=== PATIENT | female | born 1980 | race Hispanic/Latino ===

== ENCOUNTER 2021-01-01 05:30 | Observation (INO) | payer MEDICAID ==
[2020-12-28 11:33] LABS: BASOPHILS % (AUTO) 0.7 % (0.0-5.0); EOSINOPHILS % (AUTO) 3.5 % (0.0-8.0); HEMATOCRIT 30.4 % (36-48); LYMPHOCYTES % (AUTO) 21.7 % (21.0-51.0); MEAN CORPUSCULAR HEMOGLOBIN 19.3 pg (27.0-33.0); MEAN CORPUSCULAR HGB CONC 27.3 g/dL (32.0-36.0); MEAN CORPUSCULAR VOLUME 70.9 fL (79-99); MONOCYTES % (AUTO) 5.3 % (3.0-13.0); NEUTROPHILS % (AUTO) 68.6 % (40.0-77.0); PLATELET COUNT (AUTO) 449 K/uL (130-400); RED BLOOD CELL COUNT(AUTO) 4.29 MIL/uL (4.00-5.50); RED CELL DISTRIBUTION WIDTH 23.2 % (11.0-15.5); WHITE BLOOD COUNT (AUTO) 8.7 K/uL (4.8-10.8)
[2020-12-28 13:31] VITALS: BP 140/79
[2021-01-01] VITALS (27 sets, daily range): BP systolic 70–139; BP diastolic 27–83
[~2021-01-01] VITALS: Ht 165.1 cm; Wt 99.2 kg
[~2021-01-01 05:30] MED LIST: IRON18TA PO; LACTATED RINGERS 1000ML 1,000 ML IV SCH
[2021-01-01] MEDS ORDERED: CEFAZOLIN SODIUM 1 GM VIAL IVP SCH (06:00)
[2021-01-01] MEDS ORDERED: DEXAMETHASONE SOD PHOSPHATE 10MG/ML 1ML VIAL ONE (06:38)
[2021-01-01] MEDS ORDERED: LIDOCAINE PF 100MG/5ML (2%) SYRINGE 5ML ONE (06:38)
[2021-01-01] MEDS ORDERED: SUCCINYLCHOLINE CHLORIDE 20 MG/ML 10 ML VIAL ONE (06:38)
[2021-01-01] MEDS ORDERED: NEOSTIGMINE 5MG/5ML SYR IV ONE (06:41)
[2021-01-01] MEDS ORDERED: MIDAZOLAM HCL 1 MG/ML 2ML VIAL ONE (06:41)
[2021-01-01] MEDS ORDERED: ONDANSETRON 4MG INJ ONE (06:41)
[2021-01-01] MEDS ORDERED: PROPOFOL 10 MG/ML 20ML VIAL IV ONE (06:41)
[2021-01-01] MEDS ORDERED: FENTANYL CITRATE PF 50 MCG/1 ML 2ML VIAL ONE ×2 (06:41→07:08)
[2021-01-01] MEDS ORDERED: GLYCOPYRROLATE 1 MG/5 ML SYRINGE ONE ×2 (06:41→08:33)
[2021-01-01] MEDS ORDERED: ROCURONIUM 10MG/1ML SYR 10 MG/ML ML ONE (06:41)
[2021-01-01] MEDS ORDERED: MEPERIDINE-PF 25 MG/ML SYG ONE ×3 (06:42→08:54)
[2021-01-01] MEDS ORDERED: PHENYLEPHRINE HCL 10 MG/ML 1ML VIAL IV ONE (07:12)
[2021-01-01] MEDS ORDERED: BISACODYL 10 MG SUPP.RECT RC PRN (10:15)
[2021-01-01] MEDS ORDERED: IBUPROFEN 600 MG TABLET PO PRN (10:15)
[2021-01-01] MEDS ORDERED: SIMETHICONE 80 MG TAB.CHEW PO PRN (10:15)
[2021-01-01] MEDS ORDERED: PROMETHAZINE HCL 25 MG/ML 1ML AMPULE IM PRN (10:15)
[2021-01-01] MEDS ORDERED: ONDANSETRON 4MG INJ IVP PRN (10:15)
[2021-01-01] MEDS ORDERED: MEPERIDINE-PF 75 MG/ML SYG IM PRN ×2 (10:15→12:45)
[2021-01-01] MEDS ORDERED: DOCUSATE SODIUM 100 MG CAP PO PRN (10:15)
[2021-01-01] MEDS ORDERED: MEPERIDINE-PF 25 MG/ML SYG IM PRN (10:30)
[2021-01-01] MEDS: DEXTROSE 5 %-0.45 % NACL 1,000 ML IV PRN ×2 (10:43→18:45)
[2021-01-01] MEDS: ACETAMINOPHEN WITH CODEINE 1 TAB TAB PO PRN ×2 (11:00→16:34)
[2021-01-01] MEDS: PROMETHAZINE HCL 25 MG/ML 1ML AMPULE IM PRN ×2 (12:23→18:45)
[2021-01-01] MEDS ORDERED: FLU VACC QS2020-21(6MOS UP)/PF 60 MCG/0.5 ML ML IM ONE (17:30)
[2021-01-02] MEDS: DEXTROSE 5 %-0.45 % NACL 1,000 ML IV PRN (02:59)
[2021-01-02 03:16] VITALS: BP 119/69
[2021-01-02 04:53] LABS: HEMATOCRIT 26.5 % (36-48); MEAN CORPUSCULAR HEMOGLOBIN 20.3 pg (27.0-33.0); MEAN CORPUSCULAR HGB CONC 27.9 g/dL (32.0-36.0); MEAN CORPUSCULAR VOLUME 72.8 fL (79-99); RED BLOOD CELL COUNT(AUTO) 3.64 MIL/uL (4.00-5.50); RED CELL DISTRIBUTION WIDTH 23.7 % (11.0-15.5); WHITE BLOOD COUNT (AUTO) 12.4 K/uL (4.8-10.8)
[2021-01-02 07:44] VITALS: BP 136/90
[2021-01-02] MEDS ORDERED: ACET1TAB25 PO (13:04)
== END 2021-01-02 14:15 | disposition home or self-care (01) ==
LOC: DAH 05:30 → WSH 05:31 → DAH 05:31 → WSH 09:50
PROVIDERS: ADMIT Obstetrics & Gynecology; ATTEND Obstetrics & Gynecology
DX: N92.1 Excessive and frequent menstruation with irregular cycle (principal); Z20.822 Contact with and (suspected) exposure to COVID-19; D25.9 Leiomyoma of uterus, unspecified; N81.5 Vaginal enterocele; D50.0 Iron deficiency anemia secondary to blood loss (chronic); E66.01 Morbid (severe) obesity due to excess calories; Z23 Encounter for immunization; Z68.36 Body mass index [BMI] 36.0-36.9, adult
CPT/HCPCS: 36415 ×2; 58292; 85025; 85027; 86850; 86900; 86901; 88305; 88307; 90471; 96360; 96361 ×2; 96372; A4213; A4215; A4216; A4221; A4222; A4223 ×2; A4351; A4510; A4600; A4606; A4663; A6260; C9803; G0378 ×20; J0330; J0690; J1100; J2001; J2175 ×5; J2250; J2370; J2405; J2550 ×2; J2704; J2710; J3010 ×2; J3490 ×2; J7042; J7120 ×2; Q2035; U0003

== ENCOUNTER → 2023-03-12 | Outpatient (CLI) | payer OTHER ==
[~2023-03-12] MED LIST changes: +ACET-2079 PO; -LACTATED RINGERS 1000ML 1,000 ML IV SCH
== END | disposition home or self-care (01) ==
LOC: RAH 12:31
PROVIDERS: ATTEND Internal Medicine Cardiovascular Disease
DX: Z13.6 Encounter for screening for cardiovascular disorders (principal)
CPT/HCPCS: 75571